=== PATIENT | male | born 1980 | race Caucasian/White ===

== ENCOUNTER 2024-10-25 14:27 | Inpatient (IN) | payer MEDICAID ==
[~2024-10-25] VITALS: Ht 160 cm; Wt 60.8 kg
[2024-10-25 15:20] LABS: BASOPHILS % 0.3 % (0.0-2.0); DIFFERENTIAL COMMENT 0; EOSINOPHILS % 0.6 % (0.0-5.0); HEMOGLOBIN. 13.3 g/dL (14.0-18.0); LYMPHOCYTES % 23.1 % (20.0-50.0); MEAN CORPUSCULAR HGB CONC 32.5 g/dL (31.0-37.0); MEAN CORPUSCULAR VOLUME 76.9 fL (80.0-94.0); MEAN PLATELET VOLUME 9.4 fl (7.4-10.4); PLATELET 244 x1000/uL (130-400); RED BLOOD CELL COUNT 5.33 mill/uL (4.7-6.1); RED CELL DISTRIBUTION WIDTH 14.6 % (11.6-14.6); WHITE BLOOD COUNT 7.9 x1000/uL (4.5-11.0)
[2024-10-25] MEDS: FAMOTIDINE 20MG/2ML VIAL IV ONE (15:20)
[2024-10-25 15:32] LABS: INR 1.2
[2024-10-25 15:40] LABS: CHLORIDE 108 mEq/L (98-107)
[2024-10-25 15:41] LABS: SODIUM 139 mEq/L (136-145)
[2024-10-25 15:42] LABS: CALCIUM 8.4 mg/dL (8.7-10.4); CARBON DIOXIDE 21 mEq/L (21-32)
[2024-10-25 15:47] LABS: CREATININE 1.4 mg/dL (0.6-1.3); GLUCOSE 110 mg/dL (70-105); UREA NITROGEN BLOOD 24 mg/dL (9-23)
[2024-10-25 15:48] LABS: TROPONIN I HIGH SENSITIVITY 22 ng/L (3.0-53)
[2024-10-25 15:49] LABS: ALANINE AMINOTRANSFERASE 55 IU/L (10-49); ALBUMIN 3.9 g/dL (3.2-4.8); ASPARTATE AMINOTRANSFERASE 33 IU/L (<34); BILIRUBIN DIRECT 0.4 mg/dL (<=3.0); BILIRUBIN TOTAL 1.3 mg/dL (0.1-1.0)
[2024-10-25 15:50] LABS: CLARITY URINE CLEAR (CLEAR); COLOR URINE YELLOW (YELLOW); GLUCOSE URINE NEGATIVE (NEGATIVE); KETONES URINE NEGATIVE (NEGATIVE); LEUKOCYTE ESTERASE URINE NEGATIVE (NEGATIVE); NITRITE URINE NEGATIVE (NEGATIVE); OCCULT BLOOD URINE NEGATIVE (NEGATIVE); PH URINE 6.5 (4.5-8.0); PROTEIN URINE NEGATIVE (NEGATIVE); SPECIFIC GRAVITY URINE 1.008 (1.005-1.030); UROBILINOGEN URINE 0.2 E.U./dL (0.2-1.0)
[2024-10-25 20:23] LABS: TROPONIN I HIGH SENSITIVITY 23 ng/L (3.0-53)
[2024-10-25] MEDS: FUROSEMIDE 40MG/4ML VIAL IVP SCH (20:56)
[2024-10-25] MEDS: ACETAMINOPHEN 325MG TABLET PO ONE (21:00)
[2024-10-25] MEDS ORDERED: FURO-151 PO (22:53)
[2024-10-25] MEDS ORDERED: METO25TA6 PO (22:53)
[2024-10-25] MEDS ORDERED: APIX5TAB PO (22:53)
[2024-10-25 23:04] VITALS: BP 94/71; PULSE 93; RESP 18; TEMP 36.5
[2024-10-25] MEDS ORDERED: IOHEXOL-350 100 ML BOTTLE ONE (23:33)
[2024-10-26] VITALS (7 sets, daily range): BP systolic 91–107; BP diastolic 54–85; PULSE 90–99; RESP 18–20; TEMP 36.5–36.9; O2SAT 97–100
[2024-10-26] MEDS: HYDROCODONE/ACETAMINOPHEN 10/325MG TABLET PO PRN (04:20)
[2024-10-26 05:37] LABS: BASOPHILS % 0.9 % (0.0-2.0); DIFFERENTIAL COMMENT 0; EOSINOPHILS % 0.9 % (0.0-5.0); HEMATOCRIT. 41.3 % (42.0-52.0); HEMOGLOBIN. 13.4 g/dL (14.0-18.0); LYMPHOCYTES % 35.9 % (20.0-50.0); MEAN CORPUSCULAR HEMOGLOBIN 24.9 pg (28.0-32.0); MEAN CORPUSCULAR HGB CONC 32.5 g/dL (31.0-37.0); MEAN CORPUSCULAR VOLUME 76.7 fL (80.0-94.0); MEAN PLATELET VOLUME 9.6 fl (7.4-10.4); MONOCYTES % 8.4 % (2.0-8.0); NEUTROPHILS % 53.9 % (40.0-76.0); PLATELET 252 x1000/uL (130-400); RED BLOOD CELL COUNT 5.38 mill/uL (4.7-6.1); RED CELL DISTRIBUTION WIDTH 14.7 % (11.6-14.6); WHITE BLOOD COUNT 7.6 x1000/uL (4.5-11.0)
[2024-10-26 06:01] LABS: POTASSIUM 4.1 mEq/L (3.5-5.1)
[2024-10-26 06:02] LABS: CALCIUM 8.9 mg/dL (8.7-10.4)
[2024-10-26 06:07] LABS: CREATININE 1.5 mg/dL (0.6-1.3)
[2024-10-26] MEDS ORDERED: ENOXAPARIN 40MG/0.4ML SYR SUBCUT SCH (09:00)
[2024-10-26] MEDS: LISINOPRIL 5MG TABLET PO SCH (09:00)
[2024-10-26] MEDS: CARVEDILOL 3.125 MG TABLET PO SCH (09:00)
[2024-10-26] MEDS: APIXABAN 5 MG TABLET PO SCH (12:36)
[2024-10-26] MEDS: FUROSEMIDE 40MG TABLET PO SCH (12:36)
[2024-10-26] MEDS: ASPIRIN 81MG TABLET PO SCH (12:36)
[2024-10-26] MEDS: FUROSEMIDE 40MG/4ML VIAL IVP SCH (13:30)
[2024-10-26] MEDS: ATORVASTATIN CALCIUM 40MG TABLET PO SCH (20:11)
[2024-10-26] MEDS: SENNOSIDES 8.6MG TABLET PO SCH (20:11)
[2024-10-26] MEDS: DOCUSATE SODIUM 100MG CAPSULE PO SCH (20:11)
[2024-10-26] MEDS ORDERED: IPRATROPIUM/ALBUTEROL 0.5-3(2.5)MG/3ML NEB HHN PRN (21:30)
[2024-10-27] VITALS: BP 105/74; PULSE 95; RESP 18; TEMP 36.7; O2SAT 100
[2024-10-27 02:44] LABS: *AMPHETAMINES SCREEN URINE NEGATIVE (NEGATIVE); *BENZODIAZEPINES SCREEN URINE NEGATIVE (NEGATIVE)
[2024-10-27 02:45] LABS: *BARBITURATES SCREEN URINE NEGATIVE (NEGATIVE); *COCAINE SCREEN URINE NEGATIVE (NEGATIVE); CANNABINOID URINE SCREEN NEGATIVE (NEGATIVE); ECSTASY MDMA SCREEN URINE NEGATIVE (NEGATIVE); METHADONE URINE SCREEN NEGATIVE (NEGATIVE); OPIATES URINE SCREEN PRESUMPTIVE POSITIVE (NEGATIVE); PHENCYCLIDINE URINE SCREEN NEGATIVE (NEGATIVE)
[2024-10-27 04:00] VITALS: BP 100/79; PULSE 77; RESP 18; TEMP 36.4; O2SAT 98
[2024-10-27 06:46] LABS: BASOPHILS % 0.4 % (0.0-2.0); DIFFERENTIAL COMMENT 0; EOSINOPHILS % 0.8 % (0.0-5.0); HEMATOCRIT. 40.3 % (42.0-52.0); HEMOGLOBIN. 13.1 g/dL (14.0-18.0); LYMPHOCYTES % 29.7 % (20.0-50.0); MEAN CORPUSCULAR HEMOGLOBIN 24.6 pg (28.0-32.0); MEAN CORPUSCULAR HGB CONC 32.6 g/dL (31.0-37.0); MEAN CORPUSCULAR VOLUME 75.6 fL (80.0-94.0); MEAN PLATELET VOLUME 9.6 fl (7.4-10.4); NEUTROPHILS % 61.1 % (40.0-76.0); PLATELET 223 x1000/uL (130-400); RED BLOOD CELL COUNT 5.33 mill/uL (4.7-6.1); RED CELL DISTRIBUTION WIDTH 14.7 % (11.6-14.6); WHITE BLOOD COUNT 7.5 x1000/uL (4.5-11.0)
[2024-10-27 07:02] LABS: CHLORIDE 102 mEq/L (98-107); POTASSIUM 3.9 mEq/L (3.5-5.1); SODIUM 135 mEq/L (136-145)
[2024-10-27 07:03] LABS: CALCIUM 8.3 mg/dL (8.7-10.4); CARBON DIOXIDE 26 mEq/L (21-32)
[2024-10-27 07:08] LABS: CREATININE 1.3 mg/dL (0.6-1.3); GLUCOSE 111 mg/dL (70-105); UREA NITROGEN BLOOD 24 mg/dL (9-23)
[2024-10-27 07:10] LABS: ALANINE AMINOTRANSFERASE 62 IU/L (10-49); ALBUMIN 3.7 g/dL (3.2-4.8); ASPARTATE AMINOTRANSFERASE 43 IU/L (<34); BILIRUBIN TOTAL 1.3 mg/dL (0.1-1.0); PROTEIN TOTAL 5.7 g/dL (6.0-8.3)
[2024-10-27 07:46] LABS: FERRITIN 15 ng/mL (22-322)
[2024-10-27 07:55] LABS: HEPATITIS B SURFACE ANTIGEN NEGATIVE (Negative)
[2024-10-27 08:00] VITALS: BP 107/85; PULSE 67; RESP 20; TEMP 36.2; O2SAT 100
[2024-10-27 08:16] LABS: HEPATITIS A AB IGM NEGATIVE (Negative)
[2024-10-27 08:17] LABS: HEPATITIS B CORE AB IGM NEGATIVE (Negative); HEPATITIS C AB NON REACTIVE (Neg) (Negative)
[2024-10-27 08:48] LABS: IRON 21 ug/dL (65-175)
[2024-10-27 08:51] LABS: TOTAL IRON BINDING CAPACITY 369 ug/dl (250-425)
[2024-10-27 12:00] VITALS: BP 99/77; PULSE 68; RESP 18; TEMP 36.1; O2SAT 99
[2024-10-27] MEDS: ASCORBIC ACID 500 MG TABLET PO SCH (13:18)
[2024-10-27] MEDS: FERROUS SULFATE 325MG TABLET PO SCH (13:19)
[2024-10-27] MEDS: FUROSEMIDE 40MG/4ML VIAL IVP SCH (13:45)
[2024-10-27 16:00] VITALS: BP 101/71; PULSE 91; RESP 20; TEMP 36.4; O2SAT 99
[2024-10-27] MEDS: ONDANSETRON HCL 4MG/2ML INJ IV PRN (19:25)
[2024-10-27 20:34] VITALS: BP 101/79; PULSE 93; RESP 19; TEMP 36.6
[2024-10-28 00:13] VITALS: BP 102/73; PULSE 93; RESP 19; TEMP 36.6; O2SAT 96
[2024-10-28 04:00] VITALS: BP_SYST 101; BP_DIAS 76; BP_DIAS 79; PULSE 81; RESP 18; TEMP 36.4; O2SAT 97
[2024-10-28 08:00] VITALS: BP 105/56; PULSE 85; RESP 18; TEMP 36.7; O2SAT 98
[2024-10-28 08:08] LABS: BASOPHILS % 0.4 % (0.0-2.0); DIFFERENTIAL COMMENT 0; EOSINOPHILS % 1.5 % (0.0-5.0); HEMATOCRIT. 39.8 % (42.0-52.0); HEMOGLOBIN. 13.1 g/dL (14.0-18.0); LYMPHOCYTES % 26.8 % (20.0-50.0); MEAN CORPUSCULAR HEMOGLOBIN 24.6 pg (28.0-32.0); MEAN CORPUSCULAR HGB CONC 32.9 g/dL (31.0-37.0); MEAN CORPUSCULAR VOLUME 74.7 fL (80.0-94.0); MEAN PLATELET VOLUME 9.6 fl (7.4-10.4); MONOCYTES % 8.1 % (2.0-8.0); NEUTROPHILS % 63.2 % (40.0-76.0); PLATELET 215 x1000/uL (130-400); RED BLOOD CELL COUNT 5.33 mill/uL (4.7-6.1); RED CELL DISTRIBUTION WIDTH 14.7 % (11.6-14.6); WHITE BLOOD COUNT 6.7 x1000/uL (4.5-11.0)
[2024-10-28 09:03] LABS: CHLORIDE 102 mEq/L (98-107); POTASSIUM 3.2 mEq/L (3.5-5.1); SODIUM 139 mEq/L (136-145)
[2024-10-28 09:04] LABS: CARBON DIOXIDE 28 mEq/L (21-32)
[2024-10-28 09:05] LABS: CALCIUM 8.3 mg/dL (8.7-10.4)
[2024-10-28 09:09] LABS: CREATININE 1.2 mg/dL (0.6-1.3); GLUCOSE 79 mg/dL (70-105)
[2024-10-28 09:10] LABS: UREA NITROGEN BLOOD 23 mg/dL (9-23)
[2024-10-28 09:11] LABS: ALANINE AMINOTRANSFERASE 57 IU/L (10-49); ALBUMIN 3.7 g/dL (3.2-4.8); ASPARTATE AMINOTRANSFERASE 39 IU/L (<34)
[2024-10-28 09:12] LABS: BILIRUBIN DIRECT 0.5 mg/dL (<=3.0); BILIRUBIN TOTAL 1.3 mg/dL (0.1-1.0); PROTEIN TOTAL 5.6 g/dL (6.0-8.3)
[2024-10-28 12:00] VITALS: BP 106/60; PULSE 74; RESP 16; TEMP 36.8; O2SAT 98
[2024-10-28] MEDS ORDERED: HEPARIN 1000 UNITS/ML 10ML ONE (13:35)
[2024-10-28] MEDS ORDERED: VERAPAMIL HCL 2.5 MG/1 ML 2ML VIAL IV ONE (13:36)
[2024-10-28] MEDS ORDERED: FENTANYL CITRATE/PF 50MCG/ML 2ML VIAL ONE (13:36)
[2024-10-28] MEDS ORDERED: DIPHENHYDRAMINE 50MG/ML VIAL ONE (13:36)
[2024-10-28] MEDS ORDERED: MIDAZOLAM HCL 2 MG/2 ML VIAL ONE (13:36)
[2024-10-28] MEDS ORDERED: IODIXANOL 320MG/ML 100 ML BOTTLE IV ONE (13:37)
[2024-10-28] MEDS ORDERED: EPINEPHRINE 0.1MG/ML (1:10,000) 10ML SYR ONE (13:38)
[2024-10-28] MEDS ORDERED: ATROPINE SULFATE 1MG/10ML SYR ONE (13:38)
[2024-10-28] MEDS ORDERED: LIDOCAINE HCL 1% 20ML VIAL ONE (13:38)
[2024-10-28] MEDS ORDERED: POTASSIUM CHLORIDE 40 MEQ in DEXT 5% WATER 230 ML IV ONE (14:45)
[2024-10-28] MEDS: KCL 20MEQ/100ML X 2 FOR TOTAL KCL 40MEQ/200ML IV SCH (15:00)
[2024-10-28] MEDS ORDERED: ACETAMINOPHEN 325MG TABLET PO PRN (15:15)
[2024-10-28] MEDS ORDERED: ATROPINE SULFATE 1MG/10ML SYR IV PRN (15:15)
[2024-10-28 16:00] VITALS: BP 107/77; PULSE 93; RESP 15; TEMP 36.3; O2SAT 96
[2024-10-28] MEDS ORDERED: POTASSIUM CHLORIDE 20MEQ TABLET SR PO SCH (18:45)
[2024-10-28] MEDS ORDERED: NALOXONE HCL 0.4MG/ML VIAL IV PRN (19:00)
[2024-10-28] MEDS ORDERED: SPIR25TA6 MT (19:17)
[2024-10-28] MEDS ORDERED: FURO-151 MT (19:17)
[2024-10-28] MEDS ORDERED: COR3 PO (19:17)
[2024-10-28] MEDS ORDERED: LISI-186 PO (19:17)
[2024-10-28 20:00] VITALS: BP 101/73; PULSE 92; RESP 16; TEMP 36.4; O2SAT 97
[2024-10-28] MEDS: POTASSIUM CHLORIDE 20MEQ TABLET SR PO SCH (20:32)
[2024-10-29] VITALS: BP_SYST 104; BP_SYST 90; BP_DIAS 64; PULSE 69; PULSE 95; RESP 16; TEMP 36.3; O2SAT 99
[2024-10-29 04:00] VITALS: BP 98/69; PULSE 98; RESP 20; TEMP 35.9; O2SAT 97
[2024-10-29 06:20] LABS: BASOPHILS % 0.4 % (0.0-2.0); DIFFERENTIAL COMMENT 0; EOSINOPHILS % 1.4 % (0.0-5.0); HEMATOCRIT. 42.1 % (42.0-52.0); HEMOGLOBIN. 13.8 g/dL (14.0-18.0); LYMPHOCYTES % 27.8 % (20.0-50.0); MEAN CORPUSCULAR HEMOGLOBIN 24.6 pg (28.0-32.0); MEAN CORPUSCULAR HGB CONC 32.7 g/dL (31.0-37.0); MEAN CORPUSCULAR VOLUME 75.4 fL (80.0-94.0); MEAN PLATELET VOLUME 9.9 fl (7.4-10.4); MONOCYTES % 8.1 % (2.0-8.0); NEUTROPHILS % 62.3 % (40.0-76.0); PLATELET 260 x1000/uL (130-400); RED BLOOD CELL COUNT 5.59 mill/uL (4.7-6.1); RED CELL DISTRIBUTION WIDTH 14.7 % (11.6-14.6); WHITE BLOOD COUNT 7.2 x1000/uL (4.5-11.0)
[2024-10-29 06:37] LABS: POTASSIUM 4.6 mEq/L (3.5-5.1)
[2024-10-29 06:38] LABS: CALCIUM 8.6 mg/dL (8.7-10.4)
[2024-10-29 06:55] LABS: CREATININE 1.6 mg/dL (0.6-1.3)
[2024-10-29 08:00] VITALS: BP 101/75; PULSE 95; RESP 18; TEMP 36.4; O2SAT 98
[2024-10-29 12:00] VITALS: BP 103/75; PULSE 87; RESP 18; TEMP 36.7; O2SAT 98
[2024-10-29 12:11] VITALS: BP 112/78; PULSE 79; TEMP 98; O2SAT 98
[2024-11-03] MEDS ORDERED: ASCO500T20 PO (15:48)
[2024-11-03] MEDS ORDERED: FERR-63 PO (15:48)
== END 2024-10-29 13:55 | disposition home or self-care (01) | DRG 192 ==
LOC: ER 14:27 → EDBEDREQ 20:58 → ENRESERV 21:41 → 7WST 22:20
PROVIDERS: ADMIT Internal Medicine; ATTEND Internal Medicine
PROC: 4A023N7 Measurement of Cardiac Sampling and Pressure, Left Heart, Percutaneous Approach (ICD-10-PCS; principal; 2024-10-28)
PROC: B211YZZ Fluoroscopy of Multiple Coronary Arteries using Other Contrast (ICD-10-PCS; 2024-10-28)
DX: I13.0 Hypertensive heart and chronic kidney disease with heart failure and stage 1 through stage 4 chronic kidney disease, or unspecified chronic kidney disease (principal); N17.9 Acute kidney failure, unspecified; R18.8 Other ascites; I42.0 Dilated cardiomyopathy; R16.0 Hepatomegaly, not elsewhere classified; I50.23 Acute on chronic systolic (congestive) heart failure; N18.9 Chronic kidney disease, unspecified; K40.90 Unilateral inguinal hernia, without obstruction or gangrene, not specified as recurrent; K59.00 Constipation, unspecified; E61.1 Iron deficiency; I25.10 Atherosclerotic heart disease of native coronary artery without angina pectoris; I25.2 Old myocardial infarction; Z86.73 Personal history of transient ischemic attack (TIA), and cerebral infarction without residual deficits
CPT/HCPCS: 36415; 71045; 71275; 74174; 76700; 80048; 80053; 80076; 80305; 81003; 82728; 83036; 83540; 83550; 83880; 84484; 85025; 86705; 86709; 87340; 93005; 93306; 93458; 94070; 94640; 96374; 98960; 99291; A4606; C1769; C1887; C1893; J0461; J1200; J1308; J1644; J1940; J2250; J2405; J3010; J3480; J3490; Q9967

== ENCOUNTER 2025-04-29 00:07 | Inpatient (IN) | payer MEDICAID, OTHER ==
[~2025-04-29] VITALS: Ht 165.1 cm; Wt 75.3 kg
[~2025-04-29 00:07] MED LIST: APIX5TAB PO; ASCO500T20 PO; COR3 PO; FERR-63 PO; FURO-151 PO; LIP40 MT; SERT25TA74 PO; SPIR25TA6 MT
[2025-04-29 00:13] VITALS: O2SAT 98
[2025-04-29] MEDS: FUROSEMIDE 40MG/4ML VIAL IV ONE (01:10)
[2025-04-29] MEDS: ONDANSETRON HCL 4MG/2ML INJ IV ONE (01:10)
[2025-04-29] MEDS: MORPHINE SULFATE 4 MG/ML INJ (FOR IV/IM USE) IV ONE (01:10)
[2025-04-29] MEDS: LABETALOL 5MG/ML 4ML INJ IV ONE (01:11)
[2025-04-29 01:14] LABS: HEMATOCRIT. 53.0 % (42.0-52.0); HEMOGLOBIN. 16.3 g/dL (14.0-18.0); MEAN PLATELET VOLUME 9.2 fl (7.4-10.4); PLATELET 361 x1000/uL (130-400); RED BLOOD CELL COUNT 7.13 mill/uL (4.7-6.1); RED CELL DISTRIBUTION WIDTH 27.5 % (11.6-14.6)
[2025-04-29 01:26] LABS: ETHANOL BLOOD < 10 mg/dL (<10); PROTEIN TOTAL 6.7 g/dL (6.0-8.3); TROPONIN I HIGH SENSITIVITY 17 ng/L (3.0-53)
[2025-04-29 01:27] LABS: ASPARTATE AMINOTRANSFERASE 84 IU/L (<34); BILIRUBIN DIRECT 2.4 mg/dL (<=3.0)
[2025-04-29 01:28] LABS: BILIRUBIN TOTAL 4.3 mg/dL (0.1-1.0)
[2025-04-29 02:24] LABS: CREATININE 1.3 mg/dL (0.6-1.3); UREA NITROGEN BLOOD 20.0 mg/dL (9-23)
[2025-04-29 02:27] LABS: INR 1.2
[2025-04-29 03:15] LABS: TROPONIN I HIGH SENSITIVITY 12 ng/L (3.0-53)
[2025-04-29 03:22] LABS: CLARITY URINE CLEAR (CLEAR); COLOR URINE DARK YELLOW (YELLOW); GLUCOSE URINE NEGATIVE (NEGATIVE); KETONES URINE NEGATIVE (NEGATIVE); LEUKOCYTE ESTERASE URINE NEGATIVE (NEGATIVE); NITRITE URINE NEGATIVE (NEGATIVE); OCCULT BLOOD URINE NEGATIVE (NEGATIVE); PH URINE 5.5 (4.5-8.0); PROTEIN URINE NEGATIVE (NEGATIVE); SPECIFIC GRAVITY URINE 1.013 (1.005-1.030); UROBILINOGEN URINE 1.0 E.U./dL (0.2-1.0)
[2025-04-29 03:36] LABS: *AMPHETAMINES SCREEN URINE NEGATIVE (NEGATIVE); *BARBITURATES SCREEN URINE NEGATIVE (NEGATIVE); *BENZODIAZEPINES SCREEN URINE PRESUMPTIVE POSITIVE (NEGATIVE); *COCAINE SCREEN URINE NEGATIVE (NEGATIVE)
[2025-04-29 03:37] LABS: CANNABINOID URINE SCREEN NEGATIVE (NEGATIVE); ECSTASY MDMA SCREEN URINE NEGATIVE (NEGATIVE); METHADONE URINE SCREEN NEGATIVE (NEGATIVE); OPIATES URINE SCREEN PRESUMPTIVE POSITIVE (NEGATIVE); PHENCYCLIDINE URINE SCREEN NEGATIVE (NEGATIVE)
[2025-04-29 08:00] VITALS: BP 93/67; PULSE 81; RESP 20; TEMP 36.3; O2SAT 99
[2025-04-29 09:00] VITALS: BP 95/67; PULSE 81; RESP 20; TEMP 36.3068
[2025-04-29 09:33] LABS: LYMPHOCYTES % MANUAL 11.0 % (20.0-50.0); MONOCYTES % MANUAL 4.0 % (2.0-8.0); NEUTROPHILS % MANUAL 85.0 % (45.0-75.0); PLATELET ESTIMATE NORMAL
[2025-04-29] MEDS ORDERED: IPRATROPIUM/ALBUTEROL 0.5-3(2.5)MG/3ML NEB HHN PRN (09:45)
[2025-04-29] MEDS ORDERED: GUAIFENESIN 200MG/10ML SUGAR FREE UDC PO PRN (09:45)
[2025-04-29] MEDS ORDERED: DOCUSATE SODIUM 100MG CAPSULE PO PRN (09:45)
[2025-04-29] MEDS ORDERED: MAGNESIUM/ALUMINUM HYDROXIDE/SIMETHICONE 30ML UDC PO PRN (09:45)
[2025-04-29] MEDS ORDERED: ACETAMINOPHEN 325MG TABLET PO PRN (09:45)
[2025-04-29] MEDS ORDERED: DIPHENHYDRAMINE 50MG/ML VIAL IV PRN (09:45)
[2025-04-29] MEDS ORDERED: DEXTROSE 50% WATER 50ML SYRINGE IV PRN (09:45)
[2025-04-29] MEDS ORDERED: CLONIDINE 0.1MG TABLET PO PRN (09:45)
[2025-04-29] MEDS: AMIODARONE 200MG TABLET PO SCH (11:07)
[2025-04-29] MEDS: ACETAMINOPHEN 325MG TABLET PO PRN (11:07)
[2025-04-29] MEDS: CEFTRIAXONE 1GM/50ML 50 ML IV SCH (11:08)
[2025-04-29] MEDS: BUMETANIDE 1MG/4ML VIAL IV SCH ×2 (11:08→17:31)
[2025-04-29 12:00] VITALS: BP 90/58; PULSE 82; RESP 15; TEMP 36.3; O2SAT 97
[2025-04-29] MEDS: PANTOPRAZOLE SODIUM 40 MG/VIAL IV SCH (13:09)
[2025-04-29] MEDS ORDERED: METOCLOPRAMIDE HCL 10MG TABLET PO PRN (14:30)
[2025-04-29 16:00] VITALS: BP 97/72; PULSE 87; RESP 18; TEMP 36; O2SAT 95
[2025-04-29] MEDS: METOLAZONE 2.5MG TABLET PO SCH (17:30)
[2025-04-29 18:13] LABS: TROPONIN I HIGH SENSITIVITY 12 ng/L (3.0-53)
[2025-04-29 18:15] LABS: CREATINE KINASE MB FRACTION 1.4 ng/mL (0.5-3.6)
[2025-04-29 20:00] VITALS: BP 93/68; PULSE 85; RESP 17; TEMP 36.6; O2SAT 98
[2025-04-29] MEDS: METOPROLOL TARTRATE 25MG TABLET PO SCH (21:00)
[2025-04-29] MEDS: MIRTAZAPINE 15MG TABLET PO SCH (21:00)
[2025-04-29] MEDS: ATORVASTATIN CALCIUM 40MG TABLET PO SCH (21:00)
[2025-04-29 23:58] LABS: CREATINE KINASE MB FRACTION < 0.5 ng/mL (0.5-3.6)
[2025-04-29 23:59] LABS: TROPONIN I HIGH SENSITIVITY 10 ng/L (3.0-53)
[2025-04-30] VITALS (7 sets, daily range): BP systolic 90–108; BP diastolic 56–75; PULSE 84–107; RESP 17–18; TEMP 36.4–36.8; O2SAT 97–100
[2025-04-30 08:03] LABS: BASOPHILS % 0.3 % (0.0-2.0); EOSINOPHILS % 1.6 % (0.0-5.0); HEMATOCRIT. 46.1 % (42.0-52.0); HEMOGLOBIN. 14.4 g/dL (14.0-18.0); LYMPHOCYTES % 12.9 % (20.0-50.0); MEAN PLATELET VOLUME 9.0 fl (7.4-10.4); MONOCYTES % 7.8 % (2.0-8.0); NEUTROPHILS % 77.4 % (40.0-76.0); PLATELET 250 x1000/uL (130-400); RED BLOOD CELL COUNT 6.25 mill/uL (4.7-6.1); RED CELL DISTRIBUTION WIDTH 26.7 % (11.6-14.6)
[2025-04-30 08:12] LABS: ADD RBC MORPHOLOGY NO
[2025-04-30 08:25] LABS: T4 FREE 1.53 ng/dL (0.89-1.76)
[2025-04-30 08:26] LABS: CREATININE 1.0 mg/dL (0.6-1.3); TRIGLYCERIDE 97 mg/dL (0-150); UREA NITROGEN BLOOD 13 mg/dL (9-23)
[2025-04-30 08:27] LABS: LDL CHOLESTEROL 48 mg/dL (5-100)
[2025-04-30] MEDS ORDERED: LIDOCAINE HCL 1% 10 MG/ML 10ML VIAL ONE (08:34)
[2025-04-30] MEDS ORDERED: SODIUM BICARBONATE 4.2% 2.5MEQ/5ML VIAL IV ONE (08:35)
[2025-04-30] MEDS: SPIRONOLACTONE 25MG TABLET PO SCH (10:47)
[2025-04-30] MEDS: FOLIC ACID 1MG TABLET PO SCH (10:48)
[2025-04-30] MEDS: POTASSIUM CHLORIDE 20MEQ TABLET SR PO NR ×2 (11:48→17:28)
[2025-04-30] MEDS ORDERED: POTASSIUM CHLORIDE 20MEQ TABLET SR PO SCH (12:00)
[2025-04-30 14:33] LABS: BODY FLUID MONOCYTES 13 %; BODY FLUID WBC 90 /cu mm (0-200)
[2025-04-30 14:34] LABS: BODY FLUID RBC 4615 /cu mm (0-2000)
[2025-04-30] MEDS: MAGNESIUM 2 G PREMIX 50 ML IV NR (17:28)
[2025-04-30] MEDS: ONDANSETRON HCL 4MG/2ML INJ IV PRN (18:59)
[2025-04-30] MEDS: HYDROCODONE/ACETAMINOPHEN 5/325MG TABLET PO SCH (21:59)
[2025-05-01] VITALS: BP 106/71; PULSE 101; RESP 17; TEMP 36.5; O2SAT 99
[2025-05-01 04:00] VITALS: BP 101/67; PULSE 100; RESP 17; TEMP 36.3; O2SAT 98
[2025-05-01 07:12] LABS: BASOPHILS % 0.4 % (0.0-2.0); EOSINOPHILS % 1.1 % (0.0-5.0); HEMATOCRIT. 46.2 % (42.0-52.0); HEMOGLOBIN. 14.5 g/dL (14.0-18.0); LYMPHOCYTES % 16.6 % (20.0-50.0); MEAN PLATELET VOLUME 8.8 fl (7.4-10.4); MONOCYTES % 7.6 % (2.0-8.0); NEUTROPHILS % 74.3 % (40.0-76.0); PLATELET 260 x1000/uL (130-400); RED BLOOD CELL COUNT 6.32 mill/uL (4.7-6.1); RED CELL DISTRIBUTION WIDTH 26.6 % (11.6-14.6)
[2025-05-01 07:30] LABS: CREATININE 1.1 mg/dL (0.6-1.3); UREA NITROGEN BLOOD 14 mg/dL (9-23)
[2025-05-01 07:32] LABS: PHOSPHORUS 2.0 mg/dL (2.5-4.9)
[2025-05-01 08:00] VITALS: BP 100/75; PULSE 97; RESP 17; TEMP 36.5; O2SAT 99
[2025-05-01] MEDS ORDERED: SPIR25TA6 MT (11:00)
[2025-05-01] MEDS ORDERED: METO25TA6 PO (11:00)
[2025-05-01] MEDS ORDERED: METO2.5T2 PO (11:00)
[2025-05-01] MEDS ORDERED: LIP40 MT (11:00)
[2025-05-01] MEDS ORDERED: APIX5TAB PO (11:00)
[2025-05-01] MEDS ORDERED: ASCO500T20 PO (11:00)
[2025-05-01] MEDS ORDERED: FOLI-43 PO (11:00)
[2025-05-01] MEDS ORDERED: BUME2TAB PO (11:00)
[2025-05-01] MEDS ORDERED: POTASSIUM CHLORIDE 40 MEQ in DEXT 5% WATER 230 ML IV ONE (11:00)
[2025-05-01] MEDS ORDERED: RIFA550T PO (11:05)
[2025-05-01 12:00] VITALS: BP 104/74; PULSE 101; RESP 17; TEMP 36.4; O2SAT 97
[2025-05-01] MEDS: SODIUM PHOSPHATE 20 MMOL in DEXT 5% WATER 243.3333 ML IV NR (12:00)
[2025-05-01] MEDS: POTASSIUM CHLORIDE 20MEQ TABLET SR PO NR (12:33)
[2025-05-01] MEDS: MAGNESIUM 2 G PREMIX 50 ML IV NR (12:33)
[2025-05-01] MEDS: KCL 20MEQ/100ML X 2 FOR TOTAL KCL 40MEQ/200ML IV SCH (14:57)
[2025-05-01 16:00] VITALS: BP 115/77; PULSE 100; RESP 18; TEMP 36.4; O2SAT 96
[2025-05-01 16:31] VITALS: BP 115/77; PULSE 100; RESP 18; TEMP 97.6
[2025-05-01] MEDS ORDERED: BUMETANIDE 1MG/4ML VIAL IV SCH (17:15)
[2025-05-02 05:10] LABS: ALPHA FETOPROTEIN TUMOR MARKER 5.1 ng/mL (0.0-6.9); CA 19-9 24.0 U/mL (0-35); CANCER ANTIGEN 125 441.0 U/mL (Not Estab.); CARCINOEMBRYONIC AG - SEND OUT 4.1 ng/mL (0.0-4.7)
[2025-05-02] MEDS ORDERED: SPIRONOLACTONE 50MG TABLET PO SCH (09:00)
== END 2025-05-01 17:25 | disposition hospice, home (50) | DRG 194 ==
LOC: ER 00:07 → EDBEDREQTM 03:49 → EDBEDREQ 03:49 → ENRESERV 05:02 → 5WST 05:43
PROVIDERS: ADMIT Internal Medicine; ATTEND Internal Medicine
PROC: 0W9G3ZZ Drainage of Peritoneal Cavity, Percutaneous Approach (ICD-10-PCS; principal; 2025-04-30)
DX: I11.0 Hypertensive heart disease with heart failure (principal); K76.7 Hepatorenal syndrome; K56.7 Ileus, unspecified; D68.9 Coagulation defect, unspecified; R18.8 Other ascites; Z79.01 Long term (current) use of anticoagulants; I50.23 Acute on chronic systolic (congestive) heart failure; E11.9 Type 2 diabetes mellitus without complications; K74.60 Unspecified cirrhosis of liver; K52.9 Noninfective gastroenteritis and colitis, unspecified; K40.20 Bilateral inguinal hernia, without obstruction or gangrene, not specified as recurrent; I25.10 Atherosclerotic heart disease of native coronary artery without angina pectoris; I48.0 Paroxysmal atrial fibrillation; R74.01 Elevation of levels of liver transaminase levels; N50.89 Other specified disorders of the male genital organs; G89.29 Other chronic pain; F15.91 Other stimulant use, unspecified, in remission; I95.9 Hypotension, unspecified; E80.6 Other disorders of bilirubin metabolism; Z86.73 Personal history of transient ischemic attack (TIA), and cerebral infarction without residual deficits; Z79.84 Long term (current) use of oral hypoglycemic drugs; I25.2 Old myocardial infarction; Z79.82 Long term (current) use of aspirin
CPT/HCPCS: 36415; 49083; 71045; 74018; 74176; 76870; 80048; 80061; 80076; 80305; 80320; 81003; 82105; 82140; 82378; 82550; 82553; 83605; 83735; 83880; 84100; 84132; 84439; 84443; 84484; 85025; 86301; 86304; 93005; 93306; 93976; 99291; A4606; J0696; J1938; J2003; J2270; J2405; J2470; J3475; J3480; J3490; J7060; G0480